=== PATIENT | male | born 1980 | race Caucasian/White ===

== ENCOUNTER 2016-12-17 13:53 | Day surgery (SDC) | payer BC ==
[2016-12-15 19:06] VITALS: BMI 29.7
[2016-12-17] MEDS ORDERED: IBUPROFEN 800 MG/8 ML IJ IVPB PRN (14:32)
--- NOTE | 2016-12-17 14:32 | HP ---
History & Physical Update - History History: No Change - Physical Physical: No Change - Assessment Assessment: No Change - Plan Plan: No Change
[2016-12-17] MEDS ORDERED: ACETAMINOPHEN 1000 MG/100 ML VIAL (NON FORMULARY) IVPB ONE (14:33)
[2016-12-17] MEDS ORDERED: DEXTROSE 5%-0.45% SALINE 1,000 ML IV SCH (14:45)
[2016-12-17] MEDS ORDERED: PAPAVERINE HCL 30 MG/1 ML 10 ML VIAL NR ONE (16:14)
[2016-12-17] MEDS ORDERED: BUPIVACAINE HCL/PF 0.25% (2.5MG/ML) 10 ML VIAL ONE (16:15)
[2016-12-17] MEDS ORDERED: PROPOFOL 20 ML ONE ×2 (16:30→16:41)
[2016-12-17] MEDS ORDERED: MIDAZOLAM HCL 2 MG/2 ML SINGLE DOSE VIAL ONE (16:30)
[2016-12-17] MEDS ORDERED: LIDOCAINE HCL/PF 2% SDV 5ML VIAL ONE (16:31)
[2016-12-17] MEDS ORDERED: ceFAZolin SODIUM 1 GM VIAL ONE (16:43)
[2016-12-17] MEDS ORDERED: ceFAZolin SODIUM 1 GM VIAL IVPB ONE (16:43)
[2016-12-17] MEDS ORDERED: DEXAMETHASONE SOD PHOSPHATE 4 MG/1 ML VIAL ONE (16:53)
[2016-12-17] MEDS ORDERED: DESFLURANE GAS 240 ML BOTTLE IH ONE (17:10)
[2016-12-17] MEDS ORDERED: BUPIVACAINE HCL/PF 0.25% (2.5MG/ML) 10 ML VIAL IJ ONE (17:13)
[2016-12-17] MEDS ORDERED: MEPERIDINE HCL CARPU-JECT 25 MG/1 ML DISP.SYRIN ONE (17:53)
[2016-12-17] MEDS ORDERED: ACETAMINOPHEN INJECTION 100 ML IVPB ONE (17:56)
[2016-12-17] MEDS ORDERED: MEPERIDINE HCL CARPU-JECT 25 MG/1 ML DISP.SYRIN IVPUSH ONE (17:56)
[2016-12-17] MEDS ORDERED: PROMETHAZINE HCL 25 MG/1 ML VIAL IVPUSH PRN (17:56)
[2016-12-17] MEDS ORDERED: LACTATED RINGERS SOLUTION 1,000 ML IV SCH (18:00)
[2016-12-17 18:54] VITALS: TEMP 98
[2016-12-17 20:01] VITALS: BP 140/84; PULSE 79
--- NOTE | 2016-12-17 21:49 | OP ---
DATE OF OPERATION: 12/17/2016 PREOPERATIVE DIAGNOSIS: Bilateral groin pain, bilateral varicoceles. POSTOPERATIVE DIAGNOSIS: Bilateral groin pain, bilateral varicoceles. PROCEDURE: Bilateral microscopic varicocelectomies. SURGEON: Jeremy Ventura MD ANESTHESIA: Nagi Hwang MD: General anesthesia with Marcaine. FINDINGS: Bilateral varicoceles. DRAINS: None. ESTIMATED BLOOD LOSS: 5 mL. PREOPERATIVE INDICATIONS: The patient is a 36-year-old male with persistent and worsening bilateral groin pain. He also has bilateral varicoceles on ultrasound. He is offered varicocelectomies. OPERATION: The patient was brought to the OR, placed on the table in the supine position, given general anesthesia and IV antibiotics. The groin was shaved, prepped and draped sterilely, and timeout was performed. An incision was made over the right superficial inguinal ring and the cord was identified and brought out of the incision. A [place] drain was passed behind it. The vas deferens was then identified, from the cord and protected with a vessel loop. The cord was then opened and the veins were identified. The artery was seen after giving papaverine. This was avoided and the remaining veins were divided and ligated. Good hemostasis was maintained. Skin was closed with 3-0 and 4-0 suture. Please note, the microscope was used for this part of the procedure. On the left side, a similar thing was done, and incision was made over the superficial inguinal ring. The cord was identified and brought out of the incision. A [place] drain was passed behind it. The vas deferens was identified and from the cord and protected with a vessel loop. The cord was seen with the microscope. The artery was identified and the remaining veins were taken, divided and ligated. Good hemostasis was maintained throughout. At the end of the case, both vas deferens and arteries were intact and functioning. The left side was then closed as well with 3-0 Vicryl suture. The wound was dressed. Patient was woken up. Deo [id number]
--- NOTE | 2016-12-21 15:10 | PATH ---
Surgical Pathology Report Patient Name: LUPILLO STODDARD [facility]. Rec. #: [id number] /Age/Gender: 1980 (Age: 36) / M Account: [id number] Location: [facility] SURGICAL Taken: 12/18/2016 Received: 12/18/2016 Reported: 12/21/2016 Physicians: Jeremy Ventura M.D. Specimen(s) Received A: PORTION OF RIGHT VARICOCELE B: PORTION OF LEFT VARICOCELE Clinical History Scrotal varices Final Diagnosis A. PORTION OF VARICOCELE, RIGHT, VARICOCELECTOMY: DILATED BLOOD VESSELS WITH MEDIAL SCLEROSIS CONSISTENT WITH VARICOCELE. B. PORTION OF RIGHT DISTAL, LEFT, VARICOCELECTOMY: DILATED BLOOD VESSELS WITH MEDIAL SCLEROSIS CONSISTENT WITH VARICOCELE. Electronically Signed Asa Palafox M.D. Gross Description A. Received in formalin, labeled "portion of right varicocele" are 2 rodriguez, irregular portions of soft tissue averaging 0.3 cm in greatest dimension. The specimens are submitted in toto in one cassette. B. Received in formalin, labeled "portion of left varicocele" are 2 rodriguez, irregular portions of soft tissue measuring 0.3 and 0.4 cm in greatest dimension. The specimens are submitted in toto in one cassette. 12/18/201612/18/2016
== END 2016-12-17 20:21 | disposition home or self-care (01) ==
LOC: JASU-SURG 13:53
PROVIDERS: ATTEND Urology
PROC: 0VBH0ZZ Excision of Bilateral Spermatic Cords, Open Approach (ICD-10-PCS; principal; 2016-12-17 15:00)
DX: I86.1 Scrotal varices (principal)
CPT/HCPCS: 88304-TC; 94760

== ENCOUNTER 2017-09-29 17:06 | Emergency (ER) | payer BC ==
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
[2017-09-29 17:31] VITALS: BP 126/79; PULSE 77; TEMP 98.3; BMI 29.2
== END 2017-09-29 20:46 | disposition home or self-care (01) ==
LOC: JER 17:06
DX: S06.0X0A Concussion without loss of consciousness, initial encounter (principal); W20.8XXA Other cause of strike by thrown, projected or falling object, initial encounter; Y93.89 Activity, other specified; Y92.410 Unspecified street and highway as the place of occurrence of the external cause; F31.9 Bipolar disorder, unspecified; Z87.891 Personal history of nicotine dependence; J45.909 Unspecified asthma, uncomplicated; F95.2 Tourette's disorder
CPT/HCPCS: 70450-TC; 99282-25